=== PATIENT | female | born 1995 | race Caucasian/White ===

== ENCOUNTER 2024-03-29 19:08 | Inpatient (IN) | payer BC, SELFPAY ==
[2024-03-29] MEDS ORDERED: hydrALAZINE 20 MG/ML VIAL SLOW IVP PRN (19:26)
[2024-03-29 19:39] VITALS: BMI 37.7
[2024-03-29 20:05] LABS: Protein, Urine Random Quant Less than 10 mg/dL (1-14)
[2024-03-29 21:05] LABS: #Basophils 0.04 10x3/uL (0.0-0.2); #Eosinphils 0.07 10x3/uL (0.0-0.5); #Monocytes 0.94 10x3/uL (0.0-1.1); #Neutrophils 7.81 10x3/uL (1.5-8.4); %Basophils 0.4 % (0.0-2.0); %Eosinophils 0.6 % (0.0-6.0); %Lymphocytes 21.1 % (18.0-47.0); %Monocytes 8.3 % (0.0-10.0); Hematocrit 37.9 % (34.9-44.5); Hemoglobin 13.6 g/dL (12.0-15.5); Mean Corpuscular HGB CONC 35.9 g/dL (32.0-36.0); Mean Corpuscular Hemoglobin 32.7 pg (27.0-33.0); Mean Corpuscular Volume 91.1 fL (81.6-98.3); Mean Platelet Volume 12.1 fL (7.4-10.4); Platelet Count 178 10x3/uL (150-450); RBC Distribution Width 12.6 % (11.5-14.5); Red Blood Cell (RBC) Count 4.16 10x6/uL (3.90-5.03); White Blood Cell (WBC) Count 11.3 10x3/uL (3.5-10.5)
[2024-03-29 21:11] LABS: ALT (SGPT) 12 U/L (8-55); AST (SGOT) 22 U/L (5-34); Albumin 3.2 g/dL (3.5-5.0); Alkaline Phosphatase 224 U/L (40-110); Anion Gap 17 mmol/L (10-20); BUN (Urea Nitrogen) 8 mg/dL (7.0-18.7); Bilirubin, Total 0.2 mg/dL (0.2-1.2); Calc. Creatinine Clearance 167 mL/min (70-130); Calcium 9.3 mg/dL (7.8-10.44); Carbon Dioxide 16 mmol/L (22-29); Chloride 108 mmol/L (98-107); Estimated GFR 121; Globulin 3.4 g/dL (2.4-3.5); Glucose 80 mg/dL (70-105); Potassium 3.5 mmol/L (3.5-5.1); Protein, Total 6.6 g/dL (6.0-8.3); Sodium 137 mmol/L (136-145)
[2024-03-29] MEDS ORDERED: fentaNYL 50 mcg/mL 1 mL Vial SLOW IVP PRN (21:45)
[2024-03-29] MEDS ORDERED: Promethazine HCl 25 MG/ML VIAL IM PRN (21:45)
[2024-03-29] MEDS ORDERED: Ondansetron PF 4 MG/2 ML Vial IVP PRN (21:45)
[2024-03-29] MEDS ORDERED: Tranexamic Acid 1,000 MG/10 ML VIAL IVP PRN (21:45)
[2024-03-29] MEDS ORDERED: Ibuprofen 800 MG TAB PO PRN (21:45)
[2024-03-29] MEDS ORDERED: Misoprostol 200 MCG TAB PR PRN (21:45)
[2024-03-29] MEDS ORDERED: Diphenoxylate HCl/Atropine Tablet PO PRN (21:45)
[2024-03-29] MEDS ORDERED: Acetaminophen 500 MG TAB PO PRN (21:45)
[2024-03-29] MEDS ORDERED: Carboprost 250 MCG/ML AMP IM PRN (21:45)
[2024-03-29] MEDS ORDERED: Docusate 100 MG CAP PO PRN (21:45)
[2024-03-29] MEDS ORDERED: Lidocaine 1% (PF) 30 ML VIAL SC PRN (21:45)
[2024-03-29] MEDS ORDERED: Oxytocin 30 units/NS 500 ML 500 ML IV SCH ×2 (22:15)
[2024-03-29 23:01] LABS: Syphilis Antibody Nonreactive (Nonreactive); Syphilis Antibody Index 0.03 S/CO (<1.00 Non-Reactive)
[2024-03-29 23:02] LABS: HBsAg Index 0.17 S/CO (0-0.99); Hep B Surf Ag - L&D Non-Reactive S/CO (NonReactive)
[2024-03-29] MEDS: Misoprostol 100 MCG TAB VAG SCH (23:53)
[2024-03-30] MEDS: hydrOXYzine 25 MG TAB PO PRN (03:10)
[2024-03-30] MEDS: Lactated Ringer's 1,000 ML IV SCH (13:22)
[2024-03-30] MEDS: fentaNYL/Ropivacaine Epidural 100 ML ONE (13:41)
[2024-03-30] MEDS ORDERED: diphenhydrAMINE 50 MG/ML VIAL IVP PRN (14:43)
[2024-03-30] MEDS ORDERED: Moisturizing Cream (Eucerin) 113 GM JAR TOP PRN (14:43)
[2024-03-30] MEDS ORDERED: ePHEDrine Sulfate 50 MG/10 ML VIAL SLOW IVP PRN (14:43)
[2024-03-30] MEDS ORDERED: Lactated Ringer's 500 ML IV PRN (14:43)
[2024-03-30] MEDS ORDERED: Promethazine HCl 25 MG/ML VIAL IM PRN (14:43)
[2024-03-30] MEDS ORDERED: Naloxone HCl 0.4 mg/ml Vial IVP PRN ×2 (14:43)
[2024-03-30] MEDS ORDERED: Acetaminophen 325 MG TAB PO PRN (14:43)
[2024-03-30] MEDS ORDERED: Ondansetron PF 4 MG/2 ML Vial IVP PRN (14:43)
[2024-03-30] MEDS ORDERED: Communication Order-Pharmacy FS SCH (14:45)
[2024-03-30] MEDS: Oxytocin 30 units/NS 500 ML 500 ML IV SCH (16:02)
[2024-03-30] MEDS: Famotidine/PF 20 mg/2ml Vial SLOW IVP PRN (21:03)
[2024-03-31] MEDS: fentaNYL 2 mcg/Ropivacaine 0.2% Epidural 100 ML CADD EPIDURAL SCH (00:20)
[2024-03-31] MEDS ORDERED: hydrALAZINE 20 MG/ML VIAL SLOW IVP PRN (13:37)
[2024-03-31] MEDS ORDERED: Milk Of Magnesia 30 ML UDCUP PO PRN (13:37)
[2024-03-31] MEDS ORDERED: Bisacodyl 10 MG SUPP PR PRN (13:37)
[2024-03-31] MEDS: Ibuprofen 800 MG TAB PO SCH (14:55)
[2024-03-31] MEDS: Acetaminophen 325 MG TAB PO SCH (14:55)
[2024-03-31] MEDS: Benzocaine-Menthol 82.5 ML CAN TOP PRN (17:02)
[2024-03-31] MEDS: Boostrix 0.5 ML (Tdap) VIAL (>/=7 yrs of age) IM ONE (17:32)
[2024-03-31] MEDS: Docusate 100 MG CAP PO SCH (19:52)
[2024-03-31] MEDS ORDERED: Acetaminophen 325 MG TAB PO PRN (20:00)
[2024-04-01] MEDS: Ferrous Sulfate 325 MG TAB PO SCH (10:58)
[2024-04-02 09:48] VITALS: BP 129/63; TEMP 97.9
== END 2024-04-02 13:35 | disposition home or self-care (01) | DRG 807 ==
LOC: CSHLD/OP 19:08 → CSHLD 21:45 → CSHPP 03-31 16:05
PROVIDERS: ADMIT Obstetrics & Gynecology; ATTEND Obstetrics & Gynecology
PROC: 3E0P7VZ Introduction of Hormone into Female Reproductive, Via Natural or Artificial Opening (ICD-10-PCS; 2024-03-30)
PROC: 0U7C7ZZ Dilation of Cervix, Via Natural or Artificial Opening (ICD-10-PCS; 2024-03-30)
PROC: 3E033XZ Introduction of Vasopressor into Peripheral Vein, Percutaneous Approach (ICD-10-PCS; 2024-03-30)
PROC: 10E0XZZ Delivery of Products of Conception, External Approach (ICD-10-PCS; principal; 2024-03-31)
PROC: 0KQM0ZZ Repair Perineum Muscle, Open Approach (ICD-10-PCS; 2024-03-31)
PROC: 10907ZC Drainage of Amniotic Fluid, Therapeutic from Products of Conception, Via Natural or Artificial Opening (ICD-10-PCS; 2024-03-31)
DX: O13.4 Gestational [pregnancy-induced] hypertension without significant proteinuria, complicating childbirth (principal); Z37.0 Single live birth; R51.9 Headache, unspecified; O26.03 Excessive weight gain in pregnancy, third trimester; O70.1 Second degree perineal laceration during delivery; Z3A.40 40 weeks gestation of pregnancy; Z88.8 Allergy status to other drugs, medicaments and biological substances
CPT/HCPCS: 51702; 80053; 82570; 84156; 85025; 86780; 86850; 86900; 86901; 87340; 99285; J2590; J3490; J7120